=== PATIENT | male | born 1960 | race Caucasian/White ===

== ENCOUNTER → 2024-12-09 06:39 | Outpatient (REF) | payer OTHER, SELFPAY | LOC: PAVMRI 06:39 | PROVIDERS: ATTENDING PHYSICIAN Nurse Practitioner Adult Health; FAMILY PHYSICIAN Family Medicine; REFERRING PHYSICIAN Radiology Diagnostic Radiology | DX: M47.14 Other spondylosis with myelopathy, thoracic region (principal) | CPT/HCPCS: 70360; 71046; 72146; 76014; 76015 ==

== ENCOUNTER → 2025-08-24 07:43 | Outpatient (REF) | payer OTHER, SELFPAY | LOC: PAVMRI 07:43 | PROVIDERS: ATTENDING PHYSICIAN Physical Medicine & Rehabilitation | DX: M51.360 Other intervertebral disc degeneration, lumbar region with discogenic back pain only (principal) | CPT/HCPCS: 72148; 76014; 76015 ==